=== PATIENT | female | born 1970 | race Caucasian/White ===

== ENCOUNTER 2020-10-31 21:35 | Emergency (ER) | payer OTHER ==
[~2020-10-31 21:35] MED LIST: CYCLOBENZAPRINE10 MG PO
[2020-11-01 02:21] LABS: RED BLOOD COUNT 4.09 M/UL (4.00-5.10)
[2020-11-01 02:36] LABS: BUN/CREATININE RATIO 25 (0-10)
== END 2020-11-01 05:03 | disposition home or self-care (01) ==
LOC: ER1 21:35
PROVIDERS: Student in an Organized Health Care Education/Training Program
DX: M54.2 Cervicalgia (principal); T71.9XXA Asphyxiation due to unspecified cause, initial encounter; J44.9 Chronic obstructive pulmonary disease, unspecified; F17.210 Nicotine dependence, cigarettes, uncomplicated
CPT/HCPCS: 70498; 72125; 80053; 84702; 85025; 99284; Q9967

== ENCOUNTER 2021-05-10 07:13 | Emergency (ER) | payer OTHER ==
[2021-05-10] MEDS ORDERED: TORADOL 10 MG T10 MG PO (11:56)
[2021-05-10] MEDS ORDERED: MEDROL DOSEPAK 24 MG PO (11:56)
[2021-05-10] MEDS ORDERED: CYCLOBENZAPRINE10 MG PO (11:56)
== END 2021-05-10 12:01 | disposition home or self-care (01) ==
LOC: ER1 07:13
DX: M51.36 Other intervertebral disc degeneration, lumbar region (principal); M62.830 Muscle spasm of back; F17.200 Nicotine dependence, unspecified, uncomplicated
CPT/HCPCS: 72131; 96372; 99283; J1100; J1885

== ENCOUNTER 2021-07-09 08:32 | Emergency (ER) | payer OTHER ==
[~2021-07-09 08:32] MED LIST changes: +MEDROL DOSEPAK 24 MG PO; +TORADOL 10 MG T10 MG PO
[2021-07-09] MEDS ORDERED: NAPROXEN500 MG PO (10:19)
[2021-07-09] MEDS ORDERED: NORFLEX 100 MG100 MG PO (10:19)
== END 2021-07-09 10:23 | disposition home or self-care (01) ==
LOC: ER1 08:32
DX: S46.911A Strain of unspecified muscle, fascia and tendon at shoulder and upper arm level, right arm, initial encounter (principal); F17.210 Nicotine dependence, cigarettes, uncomplicated; J45.909 Unspecified asthma, uncomplicated; Z88.2 Allergy status to sulfonamides; Z88.8 Allergy status to other drugs, medicaments and biological substances; X58.XXXA Exposure to other specified factors, initial encounter; Y92.009 Unspecified place in unspecified non-institutional (private) residence as the place of occurrence of the external cause
CPT/HCPCS: 73030; 96372; 99283; J1885